=== PATIENT | female | born 1995 | race Hispanic/Latino ===

== ENCOUNTER 2019-08-16 07:34 | Inpatient (IN) | payer MEDICAID, OTHER ==
[~2019-08-16] VITALS: Ht 160 cm; Wt 97.5 kg
[2019-08-16] MEDS ORDERED: LACTATED RINGERS 1000ML 1,000 ML IV ONE (08:05)
[2019-08-16] MEDS ORDERED: LACTATED RINGERS 1000ML 1,000 ML IV PRN (08:27)
[2019-08-16] MEDS ORDERED: LACTATED RINGERS 500 ML 500 ML IV PRN (08:30)
[2019-08-16] MEDS ORDERED: NALOXONE HCL 0.4 MG/1 ML ML IV PRN (08:30)
[2019-08-16] MEDS ORDERED: AMPICILLIN 1GM+NS 50ML 50 ML IV SCH (08:30)
[2019-08-16] MEDS ORDERED: AMPICILLIN 2GM+NS 100ML 100 ML IV SCH (08:30)
[2019-08-16] MEDS ORDERED: OXYTOCIN 10 USP UNITS/ML 20 UNIT in LACTATED RINGERS 1000ML 1,000 ML IV SCH (08:30)
[2019-08-16] MEDS ORDERED: EPHEDRINE SULFATE 50 MG/ML AMPULE IVP PRN ×2 (08:30→14:15)
[2019-08-16 08:50] LABS: HEMATOCRIT 37.3 % (36-48); MEAN CORPUSCULAR HEMOGLOBIN 28.2 pg (27.0-33.0); MEAN CORPUSCULAR VOLUME 85.6 fL (79-99); RED BLOOD CELL COUNT(AUTO) 4.36 MIL/uL (4.00-5.50); RED CELL DISTRIBUTION WIDTH 13.7 % (11.0-15.5); WHITE BLOOD COUNT (AUTO) 12.5 K/uL (4.8-10.8)
[2019-08-16] MEDS ORDERED: OXYTOCIN-LR 20 UNITS/1000 ML 1,000 ML IV ONE ×2 (08:57→11:31)
[2019-08-16 09:51] LABS: APPEARANCE,URINE Cloudy (CLEAR); BILIRUBIN,URINE Negative (NEGATIVE); COLOR,URINE Yellow (YELLOW); GLUCOSE, URINE (UA) Negative (NEGATIVE); KETONES,URINE Negative (NEGATIVE); LEUKOCYTE ESTERASE ,URINE Trace (NEGATIVE); NITRATE,URINE Negative (NEGATIVE); OCCULT BLOOD,URINE Small (NEGATIVE); PROTEIN,URINE POS 2+ mg/dL (NEGATIVE)
[2019-08-16 10:09] LABS: BACTERIA,URINE Moderate /HPF (None Seen)
[2019-08-16 10:10] LABS: SQUAMOUS EPITHELIAL CELL,UR Few /HPF (0-2)
[2019-08-16] MEDS ORDERED: CEFAZOLIN SODIUM 1 GM VIAL IVP ONE (11:07)
[2019-08-16] MEDS ORDERED: FENTANYL CITRATE PF 50 MCG/1 ML 2ML VIAL ONE (11:13)
[2019-08-16] MEDS ORDERED: DURAMORPH PF1 MG/ML 10ML AMP IV ONE (11:21)
[2019-08-16] MEDS ORDERED: CEFAZOLIN SODIUM 1 GM VIAL ONE (11:31)
[2019-08-16] MEDS ORDERED: CALDOLOR 800MG+NS 250ML 250 ML IV ONE (11:31)
[2019-08-16] MEDS ORDERED: MEPERIDINE-PF 75 MG/ML SYG IM PRN (11:45)
[2019-08-16] MEDS ORDERED: PROMETHAZINE HCL 25 MG/ML 1ML AMPULE IM PRN (11:45)
[2019-08-16] MEDS ORDERED: SODIUM CHLORIDE 0.9% 10 ML VIAL IVP PRN (11:45)
[2019-08-16] MEDS ORDERED: OXYTOCIN-LR 20 UNITS/1000 ML 1,000 ML IV PRN (11:45)
[2019-08-16 13:47] VITALS: BP 132/76
[2019-08-16 13:51] LABS: RAPID PLASMA REAGIN NONREACTIVE (NONREACTIVE)
--- NOTE | 2019-08-16 14:00 | NUR ---
PATIENT ARRIVED TO UNIT VIA BED. NO COMPLAINTS OF PAIN. DRESSING IS DRY AND INTACT. FUNDUS IS FIRM, BLEEDING IS SCANT. OB PAD IS CLEAN. ICE PACK TO PERINEUM CONTINUES. SCDS TO LOWER BILATERAL EXTREMITIES.
[2019-08-16] MEDS ORDERED: NALOXONE HCL 0.4 MG/1 ML ML IVP PRN ×3 (14:15)
[2019-08-16] MEDS ORDERED: ONDANSETRON HCL 4 MG/2 ML VIAL IVP PRN (14:15)
[2019-08-16] MEDS ORDERED: ROPIVACAINE 0.2% 100ML VIAL 100 ML EP SCH (14:15)
[2019-08-16] MEDS ORDERED: DiphenhydrAMINE HCL 50 MG/ML VIAL IVP PRN (14:15)
[2019-08-16 16:44] VITALS: BP 128/69
[2019-08-16] MEDS ORDERED: PNV1TABL17 PO (17:21)
[2019-08-16] MEDS: DEXTROSE 5 %-0.45 % NACL 1,000 ML IV PRN (17:22)
[2019-08-16 19:32] VITALS: BP 120/61
[2019-08-16] MEDS: CALDOLOR 800MG+NS 250ML 250 ML IV SCH (20:14)
[2019-08-16 23:59] VITALS: BP 117/58
[2019-08-17] MEDS: DEXTROSE 5 %-0.45 % NACL 1,000 ML IV PRN (00:10)
[2019-08-17] MEDS: CALDOLOR 800MG+NS 250ML 250 ML IV SCH (03:45)
[2019-08-17 03:48] VITALS: BP 103/54
[2019-08-17 06:09] LABS: HEPATITIS Bs ANTIGEN SCREEN P Negative (Negative)
--- NOTE | 2019-08-17 06:35 | NUR ---
STATUS-EPIDURAL PATIENT RESTING COMFORTABLY, ALERT, ORIENTED, HAS BEEN TURNING TO SIDES WELL, NO CONCERNS VOICE. PT ON LEFT SIDE , EPIDURAL REMOVED WITH SHAYAN LANZA RN AT BEDSIDE TO OBSERVE, PATIENT TOLERATED PROCEDURE WELL, SITE INTACT, BAND AID APPLIED Addendum: 08/17/19 at 0651 by SAMIR GORDON LVN Amended: Links added.
[2019-08-17 06:38] LABS: HEMATOCRIT 30.8 % (36-48); MEAN CORPUSCULAR HEMOGLOBIN 29.3 pg (27.0-33.0); MEAN CORPUSCULAR HGB CONC 33.4 g/dL (32.0-36.0); MEAN CORPUSCULAR VOLUME 87.7 fL (79-99); RED BLOOD CELL COUNT(AUTO) 3.51 MIL/uL (4.00-5.50); RED CELL DISTRIBUTION WIDTH 13.9 % (11.0-15.5); WHITE BLOOD COUNT (AUTO) 12.1 K/uL (4.8-10.8)
[2019-08-17 07:13] VITALS: BP 115/64
[2019-08-17] MEDS ORDERED: ACETAMINOPHEN-CODEINE 300/30MG TAB PO PRN (08:30)
[2019-08-17] MEDS ORDERED: LANOLIN 30GM OINTMENT TP PRN (08:30)
[2019-08-17] MEDS ORDERED: HYDROCODONE/ACETAMINOPHEN 5/325 MG TAB PO PRN (08:30)
[2019-08-17] MEDS ORDERED: ACETAMINOPHEN EXTRA STRENGTH 500 MG TABLET PO PRN (08:30)
[2019-08-17] MEDS ORDERED: BISACODYL 10 MG SUPP.RECT RC PRN (08:30)
[2019-08-17] MEDS: DOCUSATE SODIUM 100 MG CAP PO SCH ×2 (08:45→21:08)
[2019-08-17] MEDS: SIMETHICONE 80 MG TAB.CHEW PO PRN ×2 (08:45→12:47)
--- NOTE | 2019-08-17 09:00 | NUR ---
DR. JULIEN ROUNDED AND GAVE PATIENT OPTION TO GO HOME THIS P.M. OR IN THE MORNING. PATIENT VERBALIZED WANTING TO GO HOME IF SHE CAN.
--- NOTE | 2019-08-17 10:30 | NUR ---
MADE AWARE BY NURSERY OF BABY NOT GOING TO BE DISCHARGED DUE TO NO GBS RESULTS. PATIENT INDICATED WANTING TO STAY WITH BABY UNTIL A.M. SINCE SHE IS .
[2019-08-17 11:02] VITALS: BP 110/68
[2019-08-17] MEDS: IBUPROFEN 800 MG TAB PO SCH ×2 (12:48→21:09)
--- NOTE | 2019-08-17 14:20 | NUR ---
PATIENT WAS MOVED TO ROOM 111 FROM 122. AMBULATED TO ROOM AND INDICATED HAVING PAIN OF 7 WHEN AMBULATED TO ROOM. ENCOURAGED PATEINT TO WALK IN HALLWAY TO PASS GAS AND OFFERED DULCOLAX SUPPOSITORY AND INDICATED WOULD WALK. WARM PRUNE JUICE WAS OBTAINED AND GIVEN TO PATIENT.
--- NOTE | 2019-08-17 15:30 | NUR ---
PATIENT WAS GIVEN DISCHARGE INSTRUCTIONS FOR A.M. AND INSTRUCTED PATIENT THAT SCRIPT WOULD BE GIVEN IN A.M. IN CASE DR. JULIEN WRITES FOR AN ANTIBIOTIC OR OTHER MEDS. VERBALIZED UNDERSTANDING INSTRUCTIONS GIVEN AND FREQUENCY AND DOSAGE ON MEDICATIONS ORDERED BY DR. FIGUEROA. VITAL SIGNS DONE AND ARE WNL. PATIENT BABY.
[2019-08-17 15:37] VITALS: BP 119/68
--- NOTE | 2019-08-17 15:40 | NUR ---
AMBULATING IN HALLWAY AND STATES FEELING BETTER AFTER EMPTYING BLADDER AND HAVING TAKEN NORCO. REPORT WAS GIVEN TO L/D STAFF AND MADE AWARE OF URINE LABS RECEIVED AND NEED FOR DR. JULIEN TO BE MADE AWARE IN A.M. DID NOT CALL DR. JULIEN SINCE C&S ARE PENDING.
[2019-08-17 19:30] VITALS: BP 123/71
[2019-08-17 23:00] VITALS: BP 117/61
[2019-08-18 03:03] VITALS: BP 112/62
[2019-08-18] MEDS: IBUPROFEN 800 MG TAB PO SCH (04:54)
[2019-08-18 08:00] VITALS: BP 112/60
--- NOTE | 2019-08-18 09:19 | NUR ---
DR JULIEN REVIEWED URINE RESULTS NO NEW ORDER RECEIVED.
--- NOTE | 2019-08-18 11:20 | NUR ---
PRESCRIPTION GIVEN. ASKED TO CALL WHEN FAMILY WAS HERE TO PICK HER UP. VERBALIZES UNDERSTANDING AND AGREEMENT.
--- NOTE | 2019-08-18 11:50 | NUR ---
pt out to private car via [place]. [facility] in arms at side.
== END 2019-08-18 12:10 | disposition home or self-care (01) | DRG 540 ==
LOC: EDH 07:34 → LDH 07:48 → OBSVTOIN 07:48 → WSH 13:48
PROVIDERS: ADMIT Obstetrics & Gynecology; ATTEND Obstetrics & Gynecology
PROC: 10D00Z1 Extraction of Products of Conception, Low, Open Approach (ICD-10-PCS; principal; 2019-08-16 11:02)
DX: O77.9 Labor and delivery complicated by fetal stress, unspecified (principal); Z37.0 Single live birth; Z3A.37 37 weeks gestation of pregnancy
CPT/HCPCS: 36415; 59510; 81001; 85027; 86592; 86701; 86850; 86900; 86901; 87077; 87088; 87186; 87340; 87390; A4314; A4344; G0378; J0290; J0690; J1200; J1741; J2274; J2405; J2590; J2795; J3010; J7120

== ENCOUNTER 2020-11-14 20:55 | Emergency (ER) | payer MEDICAID ==
[~2020-11-14] VITALS: Ht 162.6 cm; Wt 77.1 kg
[~2020-11-14 20:55] MED LIST: PNV1TABL17 PO
[2020-11-14 21:25] LABS: BASOPHILS % (AUTO) 0.5 % (0.0-5.0); EOSINOPHILS % (AUTO) 2.7 % (0.0-8.0); HEMATOCRIT 39.9 % (36-48); LYMPHOCYTES % (AUTO) 26.8 % (21.0-51.0); MEAN CORPUSCULAR HEMOGLOBIN 30.1 pg (27.0-33.0); MEAN CORPUSCULAR HGB CONC 33.3 g/dL (32.0-36.0); MEAN CORPUSCULAR VOLUME 90.3 fL (79-99); MONOCYTES % (AUTO) 7.3 % (3.0-13.0); NEUTROPHILS % (AUTO) 62.2 % (40.0-77.0); PLATELET COUNT (AUTO) 217 K/uL (130-400); RED BLOOD CELL COUNT(AUTO) 4.42 MIL/uL (4.00-5.50); RED CELL DISTRIBUTION WIDTH 12.4 % (11.0-15.5); WHITE BLOOD COUNT (AUTO) 13.3 K/uL (4.8-10.8)
[2020-11-14 21:33] LABS: CREATININE 0.8 mg/dL (0.5-1.5); POTASSIUM 3.9 mmol/L (3.5-5.1)
[2020-11-14 21:38] LABS: ALBUMIN 3.3 g/dL (3.5-5.0); BILIRUBIN,TOTAL 0.2 mg/dL (0.2-1.0); TOTAL PROTEIN, SERUM 7.1 g/dL (6.0-8.3)
[2020-11-14 23:04] LABS: APPEARANCE,URINE Clear (CLEAR); BILIRUBIN,URINE Negative (NEGATIVE); COLOR,URINE Yellow (YELLOW); GLUCOSE, URINE (UA) Negative (NEGATIVE); KETONES,URINE Negative (NEGATIVE); LEUKOCYTE ESTERASE ,URINE Small (NEGATIVE); NITRATE,URINE Negative (NEGATIVE); OCCULT BLOOD,URINE Large (NEGATIVE); PROTEIN,URINE Trace mg/dL (NEGATIVE)
[2020-11-14 23:15] LABS: RBC,URINE 51-100 /HPF (0-1)
[2020-11-14 23:16] LABS: BACTERIA,URINE Few /HPF (None Seen); SQUAMOUS EPITHELIAL CELL,UR 0-2 /HPF (0-2)
[2020-11-14 23:54] VITALS: BP 126/70
[2020-11-15] MEDS ORDERED: 0.9%NACL 1000ML 1,000 ML IV ONE (01:00)
[2020-11-15 01:22] VITALS: BP 128/76
[2020-11-15] MEDS ORDERED: ONDA4TAB10 PO (03:19)
[2020-11-15] MEDS ORDERED: DICY20TA2 PO (03:19)
[2020-11-15] MEDS ORDERED: METO-296 PO (03:19)
[2020-11-15] MEDS ORDERED: ONDANSETRON ODT 4MG TAB SL ONE (03:30)
[2020-11-15] MEDS ORDERED: METOCLOPRAMIDE 10 MG TABLET PO SCH (03:30)
[2020-11-15] MEDS ORDERED: DICYCLOMINE HCL 20 MG TAB PO SCH (03:30)
== END 2020-11-15 03:35 | disposition home or self-care (01) ==
LOC: EDH 20:55
DX: O03.9 Complete or unspecified spontaneous abortion without complication (principal); Z79.899 Other long term (current) drug therapy; Z3A.08 8 weeks gestation of pregnancy
CPT/HCPCS: 36415; 76817; 80053; 81001; 84702; 84703; 85025; 86850; 86900; 86901